=== PATIENT | female | born 2000 ===

== ENCOUNTER 2018-10-24 01:26 | Inpatient (IN) | payer SELFPAY ==
[2018-10-24] VITALS (859 sets, daily range): BP systolic 104–134; BP diastolic 58–84; PULSE 63–115; TEMP 98.6–98.9; O2SAT 53–100
[~2018-10-24] VITALS: Ht 165.1 cm; Wt 113.5 kg
--- NOTE | 2018-10-24 01:30 | NUR ---
Report called from [facility] by SARMAD Bailey. Patient information received. Patient will be leaving via EMS soon.
--- NOTE | 2018-10-24 02:25 | NUR ---
Patient arrives via EMS at this time. Patient transfers self to unit bed via ambulation. Patient is steady on her feet. Patient is alert and oriented. No complaints of pain or discomfort. Assessment complete. Assessment reveals clear lung sounds, normal HR and rhythm with S1 and S2 heard, and active bowel sounds x4. Patient has good pulses radial and pedal. Patient's 2 IV's are patent and flush easily when patient is relaxed. Admission assessments complete. Patient attached to unit monitoring equipment. Oriented patient to unit and room. Patient's boyfriend, Luis, at the bedside. Patient has no other needs at this time. Will continue to monitor. Call light within reach.
[2018-10-24] MEDS ORDERED: SYNTHROID 0.0.025 MG PO (02:43)
[2018-10-24] MEDS ORDERED: EFFEXOR XR75 MG/CAP PO (02:44)
[2018-10-24] MEDS ORDERED: CONCERTA18 MG PO (02:45)
[2018-10-24] MEDS ORDERED: PRILOSEC 20MG20 MG PO (02:46)
[2018-10-24] MEDS ORDERED: GLUCOPHAGE500 MG/TAB PO (02:47)
[2018-10-24] MEDS ORDERED: ALLEGRA 60MG TA60 MG PO (02:48)
[2018-10-24] MEDS ORDERED: ALLEGRA 180MG180 MG PO (02:49)
[2018-10-24] MEDS ORDERED: SINGULAIR 110 MG/TAB PO (02:50)
[2018-10-24] MEDS ORDERED: IBU800 M1 PO (02:51)
[2018-10-24] MEDS ORDERED: LIDO35.4 (02:55)
[2018-10-24] MEDS ORDERED: PROAIR HFA0.09 MG/AC IH (02:56)
[2018-10-24] MEDS ORDERED: NUVARING VAG RING VG (02:58)
[2018-10-24] MEDS ORDERED: BLUE TOP (02:59)
[2018-10-24 03:58] LABS: BASO % 0.2 % (0.0-2.0); EOS # 0.2 (0.0-0.7); EOS % 1.4 % (0-4.0); GRAN # 7.5 (1.4-6.5); GRAN % 62.2 % (42.2-75.2); HEMATOCRIT 37.7 % (35.0-45.0); HEMOGLOBIN 12.2 g/dl (12.0-15.0); LYMPH # 3.4 (1.2-3.4); LYMPH % 28.1 % (20.0-51.0); MEAN CELL VOLUME 87 fl (80.0-95.0); MEAN CORPUSCULAR HEMOGLOBIN 28 pg (26.0-32.0); MEAN CORPUSCULAR HGB CONC 32 g/dl (33.0-37.0); MEAN PLATELET VOLUME 9.3 fl (7.4-10.4); MONO # 0.9 (0.1-0.6); MONO % 7.7 % (1.7-9.3); PLATELET COUNT 342 K/mm3 (130-400); RED BLOOD COUNT 4.34 M/mm3 (4.10-5.30); REDCELL DISTRIBUTION WIDTH-CV 14.5 % (11.5-14.5)
[2018-10-24 04:06] LABS: ALBUMIN 3.7 gm/dL (3.5-5.0); BILIRUBIN,TOTAL 0.3 mg/dL (0.0-1.0); CALCIUM 8.7 mg/dL (8.4-10.2); CHOLESTEROL RISK RATIO 5.8; CREATININE, serum 0.6 (0.52-1.25); MAGNESIUM 1.8 mg/dL (1.6-2.3); POTASSIUM 3.8 mmol/L (3.4-5.0); TOTAL PROTEIN 7.2 gm/dL (6.4-8.2)
[2018-10-24 04:24] LABS: TROPONIN-I 0.649 ng/mL (0.000-0.035)
[2018-10-24 04:36] LABS: TSH w REFLEX 3.26 uIU/mL (0.465-4.680)
[2018-10-24 05:01] LABS: COLLECTION METHOD CLEAN CATCH
[2018-10-24 05:09] LABS: MUCOUS Present /lpf; PH 6 (5-8); SQUAMOUS EPITHELIAL 0-2 /hpf; URINE APPEARANCE Clear; URINE BACTERIA None Seen /hpf; URINE BILIRUBIN Negative (NEGATIVE); URINE BLOOD 2+ (NEGATIVE); URINE COLOR Yellow; URINE GLUCOSE Negative (NEGATIVE); URINE KETONE Negative (NEGATIVE); URINE LEUKOCYTE ESTERASE Negative (NEGATIVE); URINE NITRATE Negative (NEGATIVE); URINE PROTEIN(semi-quant) Negative (NEGATIVE); URINE RBC 0-2 /hpf
--- NOTE | 2018-10-24 05:10 | NUR ---
This nurse takes patient to CT at this time via wheelchair. Sweetie, Staff Developer on unit to monitor patients.
--- NOTE | 2018-10-24 05:20 | NUR ---
Return from CT at this time via wheelchair. Patient ambulates to bed. Attached to monitoring equipment. No further needs, will continue to monitor.
[2018-10-24 05:24] LABS: TRICYCLIC ANTIDEPRESS URINE NEGATIVE
--- NOTE | 2018-10-24 07:05 | NUR ---
Report received from Maya BAÑUELOS and care resumed.
--- NOTE | 2018-10-24 07:19 | NUR ---
Bedside report given to SARMAD Prescott.
--- NOTE | 2018-10-24 08:42 | NUR ---
SENG met with the patient to discuss a discharge plan. The pt lives in [place] with her boyfriend and another roommate. The pt does not use any DME and reports independence with ADLs. The pt's PCP is FAREED Julien from [facility] in [place]. The pt receives her medications from [facility] as well. The pt reports no difficulties obtaining her medications. The pt does not have advanced directives in the EMR, but she was interested in obtaining a DPOA-HC form. The pt plans to return home upon discharge. There are no addtional needs at this time.
--- NOTE | 2018-10-24 09:32 | NUR ---
Assessment complete. Pt denies any pain or concerns. Updated on current plan of care. AM meds given. Pt NPO at this time until seen by cardiology. Will continue to follow.
--- NOTE | 2018-10-24 10:38 | NUR ---
Dr Magaña in to see pt at this time.
--- NOTE | 2018-10-24 17:48 | NUR ---
Pt to [facility] at this time by bed.
--- NOTE | 2018-10-24 17:58 | NUR ---
PLEASE SEE MERGE FOR ALL MEDICATION ADMINISTRATION TIMES, SEDATION ASSESSMENT DATA OINTRA/POST PROCEDURE.
--- NOTE | 2018-10-24 18:30 | NUR ---
Report called to Tala BAÑUELOS and medical and pt's belongings taken to room 317.
--- NOTE | 2018-10-24 18:45 | NUR ---
Pt arrives to medical floor rm 317 from [facility] [employer] [facility] via bed accompanied by SARMAD Beckwith. Pt awake and alert, oriented x 4. Radial compression band in place to right wrist, no signs of bleeding. VSS. No further needs reported. Call light in reach.
--- NOTE | 2018-10-24 20:45 | NUR ---
5 cc removed from right radial site, now at 9 cc. no hematoma/bleeding noted
--- NOTE | 2018-10-24 20:58 | NUR ---
Patient resting in bed, assessment completed, VSS, denies pain. RIght radial site- air released per orders 5cc every 30 minutes until completed after 2 hours. Pt knows to stay in bed until 2 hours finished and will get up first time with staff. No needs at this time.
--- NOTE | 2018-10-24 21:18 | NUR ---
5 cc removed from right radial site, now at 4 cc. no bleeding/hematoma noted
--- NOTE | 2018-10-24 21:50 | NUR ---
4 cc removed from right radial site, now at 0. no bleeding/hematoma noted
[2018-10-25 00:03] VITALS: BP 109/66; PULSE 64; TEMP 98.7
[2018-10-25 00:29] VITALS: BP 114/61; PULSE 61
[2018-10-25 01:29] VITALS: BP 117/70; PULSE 60
[2018-10-25 03:58] VITALS: BP 119/66; PULSE 75; TEMP 98.7
--- NOTE | 2018-10-25 05:13 | NUR ---
Pt slept on/off last night, VSS, afebrile, right radial site no bleeding/hematoma.
--- NOTE | 2018-10-25 07:02 | NUR ---
report given to tian christy.
[2018-10-25 07:11] VITALS: BP 119/71; PULSE 80; TEMP 98.6
--- NOTE | 2018-10-25 09:15 | NUR ---
Patient assessment complete. Lung sound bases bilaterally diminished, upper lobes clear. Heart RRR. Pulses strong bilaterally. Bowel sounds present X4. patient A&O. Denies dizziness, chest pain, N/V, numbness, tingling or SOB. Right radial site covered with bandaid, CDI, no redness or swelling surrounding site. Boyfriend at bedside. denies needs at this time. Call light within reach.
--- NOTE | 2018-10-25 10:26 | NUR ---
Visited, listened, and provided spiritual care.
--- NOTE | 2018-10-25 11:56 | NUR ---
Patient discharge instructions discussed, all questions answered. Two RFA INT IV removed, catheter tip intact, no complications. Escorted out with this nurse, patient ambulated.
== END 2018-10-25 11:58 | disposition home or self-care (01) | DRG 281 ==
LOC: IMCU 01:26 → ICU 02:25 → MEDICAL 13:57 → ICU 13:57 → MEDICAL 13:57 → ICU 13:57 → MEDICAL 18:39 → ICU 18:39 → MEDICAL 10-25 03:00
PROVIDERS: Nurse Practitioner Family; ADMIT Hospitalist
PROC: 4A023N7 Measurement of Cardiac Sampling and Pressure, Left Heart, Percutaneous Approach (ICD-10-PCS; principal; 2018-10-24)
PROC: B2111ZZ Fluoroscopy of Multiple Coronary Arteries using Low Osmolar Contrast (ICD-10-PCS; 2018-10-24)
PROC: B2151ZZ Fluoroscopy of Left Heart using Low Osmolar Contrast (ICD-10-PCS; 2018-10-24)
DX: R00.0 Tachycardia, unspecified (principal); I21.A1 Myocardial infarction type 2; Z68.41 Body mass index [BMI] 40.0-44.9, adult; R00.2 Palpitations; R07.9 Chest pain, unspecified; E11.9 Type 2 diabetes mellitus without complications; Z79.84 Long term (current) use of oral hypoglycemic drugs; E66.9 Obesity, unspecified; J45.909 Unspecified asthma, uncomplicated; K21.9 Gastro-esophageal reflux disease without esophagitis; F90.9 Attention-deficit hyperactivity disorder, unspecified type; F41.9 Anxiety disorder, unspecified; E03.9 Hypothyroidism, unspecified; F17.210 Nicotine dependence, cigarettes, uncomplicated; E78.5 Hyperlipidemia, unspecified; I10 Essential (primary) hypertension; D72.829 Elevated white blood cell count, unspecified; R59.0 Localized enlarged lymph nodes
CPT/HCPCS: OP; 99222-AI; J1644; J1650; J2250; J3010; J7030; Q9967